=== PATIENT | female | born 1965 | race Caucasian/White ===

== ENCOUNTER 2021-10-24 05:47 | Emergency (ER) | payer BC ==
[~2021-10-24] VITALS: Ht 160 cm; Wt 54.4 kg
--- NOTE | 2021-10-24 05:59 | NUR ---
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
[2021-10-24] MEDS ORDERED: BACITRACIN ZINC OINT 15 GM TUBE ONE (06:14)
[2021-10-24] MEDS ORDERED: BACITRACIN ZINC OINT 15 GM TUBE TOP ONE (06:15)
--- NOTE | 2021-10-24 06:23 | NUR ---
XRAY AT BEDSIDE.
[2021-10-24] MEDS ORDERED: OXYC-128 PO (06:34)
--- NOTE | 2021-10-24 06:57 | NUR ---
Patient discharged to home in stable condition. Written and verbal after care instructions given. Patient verbalizes understanding of instructions. Stressed follow up or return to ER for worsening s/s. Steady gait.
[2021-10-24 06:58] VITALS: BP 134/85
== END 2021-10-24 06:59 | disposition home or self-care (01) ==
LOC: ER 05:55
DX: S52.572A Other intraarticular fracture of lower end of left radius, initial encounter for closed fracture (principal); W01.0XXA Fall on same level from slipping, tripping and stumbling without subsequent striking against object, initial encounter; Y92.89 Other specified places as the place of occurrence of the external cause; I10 Essential (primary) hypertension; S61.402A Unspecified open wound of left hand, initial encounter
CPT/HCPCS: 73110; A4663